=== PATIENT | female | born 1985 | race Caucasian/White ===

== ENCOUNTER → 2017-12-14 | Outpatient (CLI) | payer BC ==
[~2017-12-14] MED LIST: CYCL-332 PO; DIA5 PO; KET10 PO; LOR5/325 PO; NO MEDS; PER PO
--- NOTE | 2017-12-14 16:00 | RADIOLOGY IMAGING REPORT ---
FACILITY: [facility] [place] PATIENT NAME: Tami Ha : 1985 MR: [id number] V: [id number] EXAM DATE: ORDERING PHYSICIAN: SCOT HEBERT TECHNOLOGIST: Location: Patient: Tami Ha : 1985 Visit/Account:[id number] Date of Sevice: 12/14/2017 Exam type: KNEE 3 VIEW LEFT History: Knee pain for years, previous injury Comparison: None. Findings: There is no evidence of acute fracture or dislocation involving the left knee. There is very mild na rrowing of the medial compartment. No radiopaque soft tissue foreign bodies are seen IMPRESSION: 1. There is very mild narrowing the medial compartment of the left knee. Report Dictated By: Lashawn Huang MD at 12/14/2017 3:55 PM Report E-Signed By: Lashawn Huang MD at 12/14/2017 3:57 PM WSN:[email or web address]
== END ==
LOC: RAD 15:18
PROVIDERS: ATTEND Family Medicine
DX: M25.562 Pain in left knee (principal)